=== PATIENT | male | born 1975 | race Two or more races ===

== ENCOUNTER 2020-05-07 23:16 | Emergency (ER) | payer OTHER ==
[~2020-05-07] VITALS: Ht 190.5 cm; Wt 140.6 kg
[2020-05-07 23:20] VITALS: BP 146/60
== END 2020-05-08 00:09 | disposition home or self-care (01) ==
LOC: ER 23:22
DX: J45.909 Unspecified asthma, uncomplicated (principal)

== ENCOUNTER 2020-05-13 09:55 | Emergency (ER) | payer OTHER ==
[~2020-05-13] VITALS: Ht 190.5 cm; Wt 140.6 kg
[2020-05-13 10:06] VITALS: BP 156/75
== END 2020-05-13 10:29 | disposition home or self-care (01) ==
LOC: ER 09:57
DX: J45.909 Unspecified asthma, uncomplicated (principal)

== ENCOUNTER 2020-07-07 09:14 | Emergency (ER) | payer OTHER ==
[~2020-07-07] VITALS: Ht 190.5 cm; Wt 158.8 kg
--- NOTE | 2020-07-07 09:23 | NUR ---
came to er sent home from work d/t asthma attack. requesting med refill. jerson mqcueen MD at bedside for evaluation
[2020-07-07 09:27] VITALS: BP 132/68
--- NOTE | 2020-07-07 09:32 | NUR ---
Patient discharged to home in stable condition. Written and verbal after care instructions given. Patient verbalizes understanding of instruction.
== END 2020-07-07 09:33 | disposition home or self-care (01) ==
LOC: ER 09:17
DX: J45.909 Unspecified asthma, uncomplicated (principal); Z76.0 Encounter for issue of repeat prescription

== ENCOUNTER 2020-07-09 19:27 | Emergency (ER) | payer OTHER ==
[~2020-07-09] VITALS: Ht 180.3 cm; Wt 158.8 kg
[2020-07-09 20:21] VITALS: BP 151/94
== END 2020-07-09 20:39 | disposition home or self-care (01) ==
LOC: ER 19:27
DX: J45.909 Unspecified asthma, uncomplicated (principal); E66.8 Other obesity; Z68.42 Body mass index [BMI] 45.0-49.9, adult; Z76.0 Encounter for issue of repeat prescription; Z02.89 Encounter for other administrative examinations